=== PATIENT | female | born 1965 | race African-American/Black ===

== ENCOUNTER 2020-01-29 15:11 | Emergency (ER) | payer BC, OTHER ==
[2020-01-29] MEDS ORDERED: ASPIRIN 325 MG ENTERIC COATED TABLET (FP) PO ONE (15:32)
[2020-01-29] MEDS ORDERED: ASPIRIN 81 MG CHEWABLE TABLETS PO ONE (15:36)
[2020-01-29 16:33] LABS: BASO % 1.3 % (0-2.0); EOS % 1.9 % (0-4.5); HEMATOCRIT 33.7 % (32.4-45.2); HEMOGLOBIN 10.4 GM/dL (10.7-15.3); LYMPH % 33.5 % (8-40); MCH 23.5 pg (25.7-33.7); MEAN CELL VOLUME 75.9 fl (80-96); MEAN PLT VOLUME 7.5 fl (7.5-11.1); MONO % 5.7 % (3.8-10.2); NEUT % 57.6 % (42.8-82.8); PLATELET COUNT 385 K/MM3 (134-434); RBC 4.44 M/mm3 (3.60-5.2); RDW 20.7 % (11.6-15.6); WHITE BLOOD COUNT 6.3 K/mm3 (4.0-10.0)
[2020-01-29 16:47] LABS: INR 1.09 (0.83-1.09); PROTHROMBIN TIME (PATIENT) 13.2 SEC (9.7-13.0)
[2020-01-29 16:50] LABS: ACTIVATED PTT 36.8 SECONDS (25.2-36.5)
[2020-01-29 16:59] LABS: ANISOCYTOSIS 2+; MACROCYTOSIS 2+
[2020-01-29 17:01] LABS: CHLORIDE 107 mmol/L (98-107); SODIUM 141 mmol/L (136-145)
[2020-01-29 17:03] LABS: ALBUMIN 3.3 g/dl (3.4-5.0); ANION GAP 6 MMOL/L (8-16); BLOOD UREA NITROGEN 19.1 mg/dL (7-18); CALCIUM 9.2 mg/dL (8.5-10.1); CO2 28 mmol/L (21-32); GLUCOSE,RANDOM 77 mg/dL (74-106); MAGNESIUM 2.2 mg/dL (1.8-2.4)
[2020-01-29 17:06] LABS: SGOT/AST 10 U/L (15-37); SGPT/ALT 13 U/L (13-61)
[2020-01-29 17:07] LABS: CREATININE 1.1 mg/dL (0.55-1.3)
[2020-01-29 17:08] LABS: BILIRUBIN,TOTAL 0.3 mg/dL (0.2-1); TOT PROT 7.6 g/dl (6.4-8.2)
[2020-01-29 17:09] LABS: ALK PHOS 100 U/L (45-117)
[2020-01-29 17:12] LABS: N-TERMINAL BNP 443.9 pg/ml (5-125)
[2020-01-29 17:15] VITALS: TEMP 98.9; BMI 34.5
[2020-01-29 17:16] VITALS: PULSE 72
[2020-01-29 20:34] VITALS: BP 152/86
== END 2020-01-29 20:33 | disposition home or self-care (01) ==
LOC: JER 15:11
DX: R07.9 Chest pain, unspecified (principal)
CPT/HCPCS: 36415; 71046-TC-FY; 71275-TC; 80053; 83735; 83880; 84484; 84703; 85025; 85379; 85610; 85730; 93005; 93010; 99284-25; Q9967

== ENCOUNTER 2021-04-11 17:44 | Observation (INO) | payer BC ==
[2021-04-11 18:02] VITALS: BMI 36.9
[2021-04-11 20:58] LABS: BASO % 0.9 % (0-2.0); EOS % 2.3 % (0-4.5); HEMATOCRIT 31.1 % (32.4-45.2); HEMOGLOBIN 9.8 GM/dL (10.7-15.3); LYMPH % 43.2 % (8-40); MCH 22.4 pg (25.7-33.7); MCHC 31.5 g/dl (32.0-36.0); MEAN CELL VOLUME 71.1 fl (80-96); MEAN PLT VOLUME 8.4 fl (7.5-11.1); MONO % 4.3 % (3.8-10.2); NEUT % 49.3 % (42.8-82.8); PLATELET COUNT 335 10^3/uL (134-434); RBC 4.36 M/mm3 (3.60-5.2); RDW 22.9 % (11.6-15.6); WHITE BLOOD COUNT 5.1 K/mm3 (4.0-10.0)
[2021-04-11 21:03] LABS: ALBUMIN 3.2 g/dl (3.4-5.0); BLOOD UREA NITROGEN 13.3 mg/dL (7-18); CALCIUM 8.8 mg/dL (8.5-10.1)
[2021-04-11 21:07] LABS: CREATININE 0.7 mg/dL (0.55-1.3)
[2021-04-11 21:09] LABS: BILIRUBIN,TOTAL 0.3 mg/dL (0.2-1); TOT PROT 7.5 g/dl (6.4-8.2)
[2021-04-11] MEDS ORDERED: ASPIRIN 81 MG CHEWABLE TABLETS PO ONE (21:12)
[2021-04-11] MEDS ORDERED: ASPIRIN 81 MG CHEWABLE TABLETS ONE (21:26)
[2021-04-11 21:37] LABS: ANISOCYTOSIS 2+; MACROCYTOSIS 0; TARGET CELLS 1+; TEAR DROP CELLS 1+
[2021-04-11] MEDS ORDERED: ACETAMINOPHEN 325 MG TABLET (FP) PO PRN (23:36)
[2021-04-12 08:53] LABS: HEMATOCRIT 29.7 % (32.4-45.2); HEMOGLOBIN 9.1 GM/dL (10.7-15.3); MCH 21.9 pg (25.7-33.7); MCHC 30.8 g/dl (32.0-36.0); MEAN CELL VOLUME 71.3 fl (80-96); MEAN PLT VOLUME 7.8 fl (7.5-11.1); PLATELET COUNT 325 10^3/uL (134-434); RBC 4.17 M/mm3 (3.60-5.2); RDW 22.9 % (11.6-15.6); WHITE BLOOD COUNT 4.5 K/mm3 (4.0-10.0)
[2021-04-12 08:54] LABS: INR 1.13 (0.83-1.09)
[2021-04-12 09:12] LABS: CALCIUM 8.7 mg/dL (8.5-10.1)
[2021-04-12 09:13] LABS: ALBUMIN 3.1 g/dl (3.4-5.0); BLOOD UREA NITROGEN 12.8 mg/dL (7-18)
[2021-04-12 09:15] LABS: MAGNESIUM 2.1 mg/dL (1.8-2.4)
[2021-04-12 09:16] LABS: PHOSPHOROUS 3.9 mg/dL (2.5-4.9)
[2021-04-12 09:18] LABS: BILIRUBIN,TOTAL 0.3 mg/dL (0.2-1); CREATININE 0.7 mg/dL (0.55-1.3)
[2021-04-12 09:19] LABS: TOT PROT 6.9 g/dl (6.4-8.2)
[2021-04-12] MEDS ORDERED: ATORVASTATIN CA 40 MG TABLET (FP) PO ONE (09:25)
[2021-04-12 09:27] LABS: RETICULOCYTES 1.18 % (0.5-1.5)
[2021-04-12] MEDS ORDERED: ENOXAPARIN NA (PORCINE) 40 MG/0.4 ML DISP.SYRIN SQ SCH (10:00)
[2021-04-12] MEDS ORDERED: HYDROCHLOROTHIAZIDE 12.5 MG CAPSULE (FP) PO SCH (10:00)
[2021-04-12] MEDS ORDERED: ASPIRIN 81 MG CHEWABLE TABLETS PO SCH (10:00)
[2021-04-12] MEDS ORDERED: amLODIPine BESYLATE 5 MG TABLET (FP) PO SCH (10:09)
[2021-04-12 10:40] VITALS: PULSE 67; TEMP 97.8
[2021-04-12] MEDS ORDERED: methaDONE HCL 40 MG DISPERSABLE TABLET PO SCH (12:30)
[2021-04-12] MEDS ORDERED: LISINOPRIL 10 MG TABLET PO SCH ×3 (13:00→22:00)
[2021-04-12 15:09] VITALS: BP 146/86
[2021-04-13] MEDS ORDERED: ATORVASTATIN CA 40 MG TABLET (FP) PO SCH (22:00)
== END 2021-04-12 14:30 | disposition home or self-care (01) ==
LOC: JER 17:44 → JERBED 21:23 → J4S 04-12 03:29
PROVIDERS: ADMIT Internal Medicine; ATTEND Internal Medicine
PROC: 3E023GC Introduction of Other Therapeutic Substance into Muscle, Percutaneous Approach (ICD-10-PCS; principal; 2021-04-11)
DX: I10 Essential (primary) hypertension (principal); E78.5 Hyperlipidemia, unspecified; J43.9 Emphysema, unspecified; F11.21 Opioid dependence, in remission; D64.9 Anemia, unspecified; Z72.0 Tobacco use; E66.8 Other obesity; Z86.16 Personal history of COVID-19; Z68.37 Body mass index [BMI] 37.0-37.9, adult; F17.201 Nicotine dependence, unspecified, in remission
CPT/HCPCS: 36415; 71046-TC-FY; 71275-TC; 80053; 80061; 82550; 82728; 83036; 83540; 83550; 83735; 84100; 84443; 84466; 84484; 85025; 85027; 85045; 85379; 85610; 93005; 93010; 93306-TC; 96372; 99285-25; C9803; G0378; Q9967; U0003; U0005

== ENCOUNTER 2022-03-14 13:04 | Emergency (ER) | payer BC ==
[2022-03-14 13:11] VITALS: BP 129/81; PULSE 91; RESP 18; TEMP 98.1; BMI 36.9
== END 2022-03-14 14:36 | disposition left against medical advice (07) ==
LOC: JER 13:04
DX: R07.9 Chest pain, unspecified (principal)
CPT/HCPCS: 93005; 93010; 99283-25

== ENCOUNTER 2023-02-05 07:16 | Emergency (ER) | payer SELFPAY ==
[2023-02-05 07:33] VITALS: RESP 18; TEMP 98.1; BMI 35.4
[2023-02-05] MEDS ORDERED: LISINOPRIL 20 MG TABLET PO ONE (08:21)
[2023-02-05] MEDS ORDERED: amLODIPine BESYLATE 5 MG TABLET (FP) PO ONE (08:21)
[2023-02-05 09:01] LABS: BASO % 0.7 % (0-2.0); EOS % 5.7 % (0-4.5); HEMATOCRIT 35.8 % (32.4-45.2); HEMOGLOBIN 11.7 GM/dL (10.7-15.3); LYMPH % 34.5 % (8-40); MCHC 32.7 g/dl (32.0-36.0); MEAN CELL VOLUME 85.8 fl (80-96); MEAN PLT VOLUME 7.8 fl (7.5-11.1); MONO % 6.8 % (3.8-10.2); NEUT % 52.3 % (42.8-82.8); PLATELET COUNT 278 10^3/uL (134-434); RBC 4.17 M/mm3 (3.60-5.2); WHITE BLOOD COUNT 5.9 K/mm3 (4.0-10.0)
[2023-02-05] MEDS ORDERED: LISINOPRIL 20 MG TABLET ONE (09:16)
[2023-02-05] MEDS ORDERED: amLODIPine BESYLATE 5 MG TABLET (FP) ONE (09:16)
[2023-02-05 09:26] LABS: POTASSIUM 3.8 mmol/L (3.5-5.1)
[2023-02-05 09:28] LABS: ALBUMIN 3.2 g/dl (3.4-5.0); BLOOD UREA NITROGEN 17.8 mg/dL (7-18); CALCIUM 9.1 mg/dL (8.5-10.1); MAGNESIUM 2.1 mg/dL (1.8-2.4)
[2023-02-05 09:31] LABS: CREATININE 0.9 mg/dL (0.55-1.3)
[2023-02-05 09:33] LABS: BILIRUBIN,TOTAL 0.3 mg/dL (0.2-1); TOT PROT 7.3 g/dl (6.4-8.2)
[2023-02-05 11:58] LABS: PH,URINE 5.5 (5.0-8.0); URINE APPEARANCE CLEAR; URINE BILIRUBIN NEGATIVE (NEGATIVE); URINE COLOR YELLOW; URINE GLUCOSE (UA) NEGATIVE (NEGATIVE); URINE KETONE NEGATIVE (NEGATIVE); URINE LEUK ESTERASE NEGATIVE (NEGATIVE); URINE NITRITE NEGATIVE (NEGATIVE); URINE PROTEIN NEGATIVE (NEGATIVE)
[2023-02-05 12:08] VITALS: BP 148/91; PULSE 75
== END 2023-02-05 12:58 | disposition home or self-care (01) ==
LOC: JER 07:16
DX: R07.9 Chest pain, unspecified (principal); I10 Essential (primary) hypertension; R00.2 Palpitations; R20.2 Paresthesia of skin; Z20.822 Contact with and (suspected) exposure to COVID-19
CPT/HCPCS: 0241U-QW; 36415; 71046-TC-FY; 80053; 81003; 83735; 84484; 85025; 93005; 93010; 99285-25

== ENCOUNTER 2024-06-14 11:35 | Emergency (ER) | payer OTHER ==
[2024-06-14 11:58] VITALS: RESP 8; BMI 31.0
[2024-06-14 13:50] LABS: ABSOLUTE IMMATURE GRANULOCYTES 0.03 x10^3/uL (0.0-0.031); BASOPHILS # 0.02 x10^3/uL (0.01-0.08); EOSINOPHILS # 0.19 x10^3/uL (0.04-0.36); HEMATOCRIT 37.2 % (34.1-44.9); HEMOGLOBIN 11.4 g/dL (11.2-15.7); MCHC 30.6 g/dl (32.2-35.5); MEAN CELL VOLUME 88.8 fl (79.4-94.8); MEAN PLT VOLUME 9.1 fl (9.4-12.3); MONOCYTE % 6.2 % (4.7-12.5); PLATELET COUNT 284 x10^3/uL (182-369)
[2024-06-14 13:57] LABS: INR 1.08 (0.83-1.09); PROTHROMBIN TIME (PATIENT) 11.9 SEC (9.7-13.0)
[2024-06-14 14:00] LABS: ACTIVATED PTT 34.1 SECONDS (25.2-36.5)
[2024-06-14 14:09] LABS: POTASSIUM 4.2 mmol/L (3.5-5.1)
[2024-06-14 14:12] LABS: ALBUMIN 3.4 g/dl (3.4-5.0); BLOOD UREA NITROGEN 18.7 mg/dL (7-18); CALCIUM 9.3 mg/dL (8.5-10.1); MAGNESIUM 2.3 mg/dL (1.8-2.4)
[2024-06-14 14:15] LABS: CREATININE 0.8 mg/dL (0.55-1.3)
[2024-06-14 14:17] LABS: BILIRUBIN,TOTAL 0.3 mg/dL (0.2-1); TOT PROT 7.4 g/dl (6.4-8.2)
[2024-06-14 14:27] LABS: ERYTHROCYTE SEDIMENTATION RATE 28 mm/hr (0-30)
[2024-06-14 15:05] LABS: HCV DIAGNOSTIC IN-HOUSE W/RFLX NON-REACTIVE (NONREACTIVE); HIV INTERPRETATION NEGATIVE (NEGATIVE)
[2024-06-14 16:48] VITALS: BP 152/95; PULSE 82; TEMP 97.9
[2024-06-14] MEDS ORDERED: ASPIRIN 81 MG CHEWABLE TABLETS ONE (18:02)
[2024-06-14] MEDS: ASPIRIN 81 MG CHEWABLE TABLETS PO ONE (18:07)
== END 2024-06-14 18:19 | disposition home or self-care (01) ==
LOC: JER 11:35
DX: R51.9 Headache, unspecified (principal); R07.89 Other chest pain; R42 Dizziness and giddiness
CPT/HCPCS: 36415; 70450-TC; 70496-TC; 70498-TC; 71046-TC-FY; 80053; 83735; 84484; 85025; 85610; 85651; 85730; 86803; 87389; 93005; 93010; 99285-25; Q9967

== ENCOUNTER 2024-10-03 17:02 | Emergency (ER) | payer OTHER ==
[2024-10-03 17:09] VITALS: RESP 18; BMI 41.0
[2024-10-03 19:11] LABS: ABSOLUTE IMMATURE GRANULOCYTES 0.01 x10^3/uL (0.0-0.031); BASOPHILS # 0.02 x10^3/uL (0.01-0.08); EOSINOPHIL % 2.9 % (0.7-5.8); EOSINOPHILS # 0.15 x10^3/uL (0.04-0.36); MCHC 30.0 g/dl (32.2-35.5); MEAN CELL VOLUME 90.2 fl (79.4-94.8); MEAN PLT VOLUME 9.7 fl (9.4-12.3); MONOCYTE # 0.32 x10^3/uL (0.24-0.86); MONOCYTE % 6.2 % (4.7-12.5); RDW 14.8 % (12.3-16.6)
[2024-10-03] MEDS ORDERED: MAG HYDROX/AL HYDROX/SIMETH 30 ML UNIT-DOSE CUP ONE (19:13)
[2024-10-03] MEDS ORDERED: ACETAMINOPHEN INJECTION 100 ML ONE (19:13)
[2024-10-03] MEDS ORDERED: FAMOTIDINE 20 MG/50 ML IVPB 20 MG/50 ML MG IVPB ONE (19:14)
[2024-10-03] MEDS: ACETAMINOPHEN 1000 MG/100 ML BAG IVPB ONE (19:24)
[2024-10-03] MEDS: FAMOTIDINE 20 MG/50 ML IVPB 20 MG/50 ML MG IVPB ONE (19:24)
[2024-10-03] MEDS: MAG HYDROX/AL HYDROX/SIMETH 30 ML UNIT-DOSE CUP PO ONE (19:25)
[2024-10-03 19:31] LABS: GLUCOSE,RANDOM 123.0 mg/dL (74-106)
[2024-10-03 19:32] LABS: TOT PROT 7.1 g/dl (6.4-8.2)
[2024-10-03 19:33] LABS: CO2 22.0 mmol/L (21-32)
[2024-10-03 19:34] LABS: ALK PHOS 85.0 U/L (40-150)
[2024-10-03 19:37] LABS: CREATININE 1.04 mg/dL (0.55-1.3); SGOT/AST 13.0 U/L (5-34); SGPT/ALT 8.0 U/L (0-55)
[2024-10-03 19:42] VITALS: BP 121/81; PULSE 62; TEMP 97.8
== END 2024-10-03 21:33 | disposition home or self-care (01) ==
LOC: JER 17:02
PROC: 3E033GC Introduction of Other Therapeutic Substance into Peripheral Vein, Percutaneous Approach (ICD-10-PCS; principal; 2024-10-03)
PROC: 3E033NZ Introduction of Analgesics, Hypnotics, Sedatives into Peripheral Vein, Percutaneous Approach (ICD-10-PCS; 2024-10-03)
DX: R10.10 Upper abdominal pain, unspecified (principal); R07.9 Chest pain, unspecified; M25.512 Pain in left shoulder; R11.0 Nausea; R19.7 Diarrhea, unspecified
CPT/HCPCS: 36415; 71046-TC-FY; 80053; 83690; 84484; 85025; 93005; 93010; 99285-25